=== PATIENT | male | born 1950 | race Caucasian/White ===

== ENCOUNTER 2016-12-28 21:12 | Emergency (ER) | payer MEDICARE, BC ==
[2016-12-28] MEDS ORDERED: Pantoprazole 40 MG Vial IVPUSH ONE (21:32)
[2016-12-28] MEDS ORDERED: Sodium Chloride 0.9% 1,000 ML IV ONE (21:32)
[2016-12-28] MEDS ORDERED: Sodium Chloride 0.9% 10 ML Syringe FLUSH PRN (21:34)
--- NOTE | 2016-12-28 22:08 | EDM.PDOC ---
ED HPI GENERAL MEDICAL PROBLEM - General Chief Complaint: Gastrointestinal Problem Stated Complaint: vomiting blood Time Seen by Provider: 12/28/16 21:25 Source of Information: Reports: Patient History Limitations: Reports: No Limitations - History of Present Illness INITIAL COMMENTS - FREE TEXT/NARRATIVE: Patient comes into the emergency room this evening carrying an ice cream bucket with bloody emesis in it. He states he started throwing up blood about a half an hour before he came in tonight. He denies headache, shortness of breath, chest pain, denies blood in his urine or stool. He does endorse being dizzy and lightheaded. Medical history according to patient is limited. He states he has some GERD and he used to have hypertension but doesn't anymore. His occupation is plumbing. States he does not have esophageal varices. He states he rarely drinks light beer. Maybe 1 or 2 a week. Denies smoking or illegal drug use. No prior history of GI bleeds. Patient does admit to taking 5-6 aspirin per day due to headaches. Onset: Today, Sudden Onset Time: 20:30 Location: Reports: Abdomen Associated Symptoms: Reports: No Other Symptoms, Nausea/Vomiting - Related Data Allergies Allergy/AdvReac Type Severity Reaction Status Date / Time No Known Allergies Allergy Verified 12/28/16 22:25 Home Meds: Home Meds Aspirin/Acetaminophen/Caffeine [Extra Pain Relief Caplet] 1 each PO ASDIRECTED PRN 12/28/16 [History] Gluc 2KCl/Chondr/Lubna Hy/Hy Ac [Glucosamine & Chondroitin Cap] 1 each PO DAILY 12/28/16 [History] ED ROS GENERAL - Review of Systems Review Of Systems: See Below Constitutional: Reports: No Symptoms HEENT: Reports: No Symptoms Respiratory: Reports: No Symptoms Cardiovascular: Reports: No Symptoms Endocrine: Reports: No Symptoms GI/Abdominal: Reports: Hematemesis : Reports: No Symptoms Musculoskeletal: Reports: No Symptoms Skin: Reports: No Symptoms Neurological: Reports: No Symptoms Psychiatric: Reports: No Symptoms Hematologic/Lymphatic: Reports: No Symptoms Immunologic: Reports: No Symptoms ED EXAM, GI/ABD - Physical Exam Exam: See Below Exam Limited By: No Limitations General Appearance: Alert, WD/WN, No Apparent Distress Eyes: Bilateral: EOMI Ears: Normal TMs Head: Atraumatic, Normocephalic Neck: Normal Inspection Respiratory/Chest: No Respiratory Distress, Lungs Clear, Normal Breath Sounds Cardiovascular: Normal Peripheral Pulses GI/Abdominal Exam: No Distention, Tender, Abnormal Bowel Sounds (hyperactive) Back Exam: Normal Inspection, Full Range of Motion Extremities: Normal Inspection, Normal Range of Motion, Non-Tender, No Pedal Edema, Normal Capillary Refill Neurological: Alert, Oriented, CN II-XII Intact, Normal Cognition, Normal Gait, Normal Reflexes, No Motor/Sensory Deficits Psychiatric: Normal Affect, Normal Mood Skin Exam: Warm, Dry, Intact, Normal Color, No Rash Lymphatic: No Adenopathy Departure - Departure Time of Disposition: 23:30 Disposition: DC/Tfer to [facility] 02 Condition: Good Clinical Impression: GI bleeding - Discharge Information Forms: ED Department Discharge, Interfacility Transfer JUAN MIGUEL ED Communication - ED Communication Date/Time Date: 12/28/16 Time Called: 22:45 - Discussed Case With (1) Discussed Case With (1): Admitting Provider (Discussed case with Dr. Gray at [place] from [place] he did accept care of the patient and is awaiting transfer)
[2016-12-28 22:31] LABS: CHLORIDE,CL 114 mmol/L (98-107); SODIUM,NA 147 mmol/L (136-145)
[2016-12-28 23:11] VITALS: BP 138/86
== END 2016-12-28 23:45 | disposition short-term general hospital (02) ==
LOC: VM.ED 21:12
DX: K92.2 Gastrointestinal hemorrhage, unspecified (principal)
CPT/HCPCS: 36415; 80053; 82550; 82553; 83605; 83880; 84484; 85025; 86850; 86900; 86901; 93005; 96365; 96366; 96375; 99284; 99285; C9113; G0480; J7030

== ENCOUNTER 2021-01-28 08:41 | Emergency (ER) | payer OTHER, MEDICARE, BC ==
[2021-01-28] MEDS ORDERED: Morphine 2 MG/ML SYRINGE IM ONE (09:03)
[2021-01-28 09:27] VITALS: PULSE 104
[2021-01-28 09:28] LABS: CHLORIDE,CL 105 mmol/L (98-107); SODIUM,NA 140 mmol/L (136-145)
[2021-01-28 09:40] LABS: ANION GAP 12.1 mmol/L (5-15)
--- NOTE | 2021-01-28 10:06 | EDM.PDOC ---
ED HPI GENERAL MEDICAL PROBLEM - General Chief Complaint: Lower Extremity Injury/Pain Stated Complaint: HIP PAIN Time Seen by Provider: 01/28/21 08:54 Source of Information: Reports: Patient - History of Present Illness INITIAL COMMENTS - FREE TEXT/NARRATIVE: Jordan is a 70 y/o male who comes to the ER with pain his left hip region. He has been having this for sometime, but this AM he could hardly walk or even get into his car. He has not taken any pain meds this AM, but is here asking for a steroid injection. No fever. Denies any trauma or injury. Left Hip Pain Score (Numeric/FACES): 8 - Related Data Allergies Allergy/AdvReac Type Severity Reaction Status Date / Time No Known Allergies Allergy Verified 01/28/21 08:54 Home Meds: Home Meds methylPREDNISolone [Medrol Dose Pack] 4 mg PO DAILY #21 dospk 01/28/21 [Rx] Past Medical History Cardiovascular History: Reports: Hypertension Gastrointestinal History: Reports: GERD Social & Family History - Caffeine Use Caffeine Use: Reports: Other Other Caffeine Use: Excedrin Migraine several times per day. Review of Systems - Review of Systems Review Of Systems: See Below Constitutional: Reports: No Symptoms Eyes: Reports: No Symptoms Ears: Reports: No Symptoms Nose: Reports: No Symptoms Mouth/Throat: Reports: No Symptoms Respiratory: Reports: No Symptoms Cardiovascular: Reports: No Symptoms GI/Abdominal: Reports: No Symptoms Genitourinary: Reports: No Symptoms Musculoskeletal: Reports: Joint Pain (left hip) Skin: Reports: No Symptoms Neurological: Reports: No Symptoms Psychiatric: Reports: No Symptoms ED EXAM, GENERAL - Physical Exam Exam: See Below Exam Limited By: No Limitations General Appearance: Alert, WD/WN, No Apparent Distress (Elderly male, able to walk into the ER but using crutches) Ears: Hearing Grossly Normal Throat/Mouth: Normal Voice Head: Atraumatic, Normocephalic Neck: Supple Respiratory/Chest: No Respiratory Distress Cardiovascular: Regular Rate, Rhythm GI/Abdominal: Normal Bowel Sounds (Male) Exam: Deferred Rectal (Males) Exam: Deferred Extremities: No Pedal Edema, Normal Capillary Refill, Other (Note tenderness with palpation over the left hip region) Course - Vital Signs Text/Narrative:: 0854 The patient was seen by the [facility]. Labs and Xray done. He was given Morphine 2mg IM for the pain. 1010 Labs reviewed. CBC WBC=11.0, diff neg; Doubt any infection. BMP neg and renal function WNL so can tolerate anti-inflammatories. XRay showed little joint space in the left hip and bone on bone noted. Severe Osteoarthritis as cause of left hip pain. Will send home with oral steroids and then have pt use OTC ibuprofen and pain meds. 1025 Radiology report reviewed, radiology concerned for avascular necrosis so will obtain CT of the joint prior to pt going home. Pain returning. Morphine 4mg IM ordered. 1145 CT reviewed, no avascular necrosis noted, proceed with discharge to home with steroids. Written instructions were given and the patient left the ER in stable condition. Last Recorded V/S: Last Vital Signs Temp 36.6 C 01/28/21 08:42 Pulse 104 H 01/28/21 08:42 Resp 20 01/28/21 08:42 BP 145/96 H 01/28/21 08:42 Pulse Ox 95 01/28/21 08:42 - Orders/Labs/Meds Labs: Laboratory Tests 01/28/21 01/28/21 Range/Units 09:13 09:13 WBC 11.0 H (4.0-10.0) x10^3/uL RBC 5.06 (4.5-6.0) x10^6/uL Hgb 15.0 (14.0-18.0) g/dL Hct 44.4 (40.0-52.0) % MCV 87.7 (78.0-93.0) fL MCH 29.6 (26.0-32.0) pg MCHC 33.8 (32.0-36.0) g/dL RDW Coeff of Teresa 12.9 (10.0-15.0) % Plt Count 484 H (130-400) x10^3/uL Immature Gran % (Auto) 0.40 (0.00-0.43) % Neut % (Auto) 74.1 (50.0-80.0) % Lymph % (Auto) 15.9 L (25.0-50.0) % [place] % (Auto) 9.1 (2.0-11.0) % Eos % (Auto) 0.4 (0.0-4.0) % Baso % (Auto) 0.1 L (0.2-1.2) % Neut # (Auto) 8.2 H (1.8-7.7) x10^3/uL Lymph # (Auto) 1.8 (1.0-4.8) x10^3/uL [place] # (Auto) 1.0 H (0.0-0.8) x10^3/uL Eos # (Auto) 0.0 (0.0-0.5) x10^3/uL Baso # (Auto) 0.0 (0.0-0.2) x10^3/uL Immature Gran # (Auto) 0.04 (0.00-0.07) x10^3/uL Sodium 140 (136-145) mmol/L Potassium 4.1 (3.5-5.1) mmol/L Chloride 105 (98-107) mmol/L Carbon Dioxide 27 (21-32) mmol/L Anion Gap 12.1 (5-15) mmol/L BUN 15 (7-18) mg/dL Creatinine 1.1 (0.70-1.30) mg/dL Est Cr Clr Drug Dosing 50.83 mL/min Estimated GFR (MDRD) > 60 Glucose 136 H (70-99) mg/dL Uric Acid 4.1 (3.5-7.2) mg/dL Calcium 9.0 (8.5-10.1) mg/dL Meds: Medications Discontinued Medications Generic Name Dose Route Start Last Admin Trade Name Freq PRN Reason Stop Dose Admin Morphine Sulfate 2 mg 01/28/21 09:03 01/28/21 09:11 Morphine 2 Mg/Ml Syringe IM 01/28/21 09:04 2 mg ONETIME ONE Administration Morphine Sulfate 4 mg 01/28/21 10:29 Morphine 4 Mg/Ml Syringe IM 01/28/21 10:30 ONETIME ONE Prednisone 1 packet 01/28/21 10:08 Take Home: Prednisone 20 Mg, 2 Tab Pack PO 01/28/21 10:09 ONETIME ONE - Radiology Interpretation Free Text/Narrative:: XR Left Hip 3V/Pelvis=severe osteoarthritis in joint, bone on bone (See final report) CT Left Hip WO=no evidence of avascular necrosis (See final report) Departure - Departure Time of Disposition: 11:46 Disposition: Home, Self-Care 01 Condition: Good Clinical Impression: Osteoarthritis of left hip Qualifiers: Osteoarthritis type: unspecified Qualified Code(s): M16.12 - Unilateral primary osteoarthritis, left hip - Discharge Information Prescriptions: methylPREDNISolone [Medrol Dose Pack] 4 mg PO DAILY #21 dospk Instructions: Hip Pain, Osteoarthritis, Pain Medicine Instructions, [id number] Referrals: Diana Hernandez NP [Primary Care Provider] - Forms: ED Department Discharge Additional Instructions: -Prednisone 20mg 2 tablets oral x 1 today (ER). Take this med today and then get the Medrol DosePack filled tomorrow and start that as directed. -Medrol Dosepack oral daily as directed on package #21(Rx) -Ibuprofen 200mg 3 tablets oral very 6 hours as needed for pain/inflammation.Use over the counter meds. -You may use the pain meds that you have at home from your knee surgery. -Call the [facility] to set up and appt to be seen for a possible steroid injection or Ortho consult for possible joint replacement, -Apply ice or heat as needed to the hip region for comfort. -Return as needed to the ER. Sepsis Event Note (ED) - Focused Exam Vital Signs: Vital Signs Temp Pulse Resp BP Pulse Ox 01/28/21 08:42 36.6 C 104 H 20 145/96 H 95 - Problem List & Annotations (1) Osteoarthritis of left hip SNOMED Code(s): 278082760223305 Code(s): M16.12 - UNILATERAL PRIMARY OSTEOARTHRITIS, LEFT HIP Status: Acute Current Visit: Yes Annotation/Comment:: CT neg for avascular necrosis. Discharged home with Prednisone for today and then Medrol Dose pack Rx. NSAIDS and pain meds. [facility]. Qualifiers: Osteoarthritis type: unspecified Qualified Code(s): M16.12 - Unilateral primary osteoarthritis, left hip - Problem List Review Problem List Initiated/Reviewed/Updated: Yes - Assessment/Plan Plan: See above
[2021-01-28] MEDS ORDERED: Take Home: predniSONE 20 MG, 2 Tab Pack PO ONE (10:08)
--- NOTE | 2021-01-28 10:17 | CR ---
[id number] RAD/RAD Pelvis 1V W 2V Left Hip EXAM: 3 VIEWS LEFT HIP. INDICATION: LEFT HIP PAIN. COMPARISON: None. DISCUSSION: No fracture, dislocation or other acute osseous abnormality. Advanced degenerative changes of the left hip. Flattening of the left femoral head with underlying sclerosis could suggest avascular necrosis. IMPRESSION: 1. No acute osseous abnormalities. Chronic changes as above. Damon Black DO 01/28/21 1016 Thank you for allowing us to participate in the care of your patient.
[2021-01-28] MEDS ORDERED: Morphine 4 MG/ML Syringe IM ONE (10:29)
--- NOTE | 2021-01-28 11:13 | CT ---
[id number] CT/CT Hip Left WO IV EXAM: CT LEFT HIP WITHOUT CONTRAST. INDICATION: RULE OUT AVASCULAR NECROSIS NOTED ON RAD REPORT. COMPARISON: None. DISCUSSION: There are no fractures or dislocation identified. No evidence of avascular necrosis. Advanced degenerative changes of the left femoral acetabular joint with complete loss of the joint space, subchondral sclerosis as well as subchondral cystic change. Vascular calcifications. IMPRESSION: 1. No evidence of acute fracture or dislocation. Advanced degenerative changes without avascular necrosis. Damon Black DO 01/28/21 1112 Thank you for allowing us to participate in the care of your patient.
[2021-01-28 12:01] VITALS: BP 140/92
== END 2021-01-28 12:00 | disposition home or self-care (01) ==
LOC: VM.ED 08:41
DX: M16.12 Unilateral primary osteoarthritis, left hip (principal); I10 Essential (primary) hypertension
CPT/HCPCS: 36415; 73700-LT; 80048; 84550; 85025; 96372; 99283; J2270; J7512